=== PATIENT | male | born 1995 | race Native Hawaiian/Other Pacific Islander ===

== ENCOUNTER 2017-08-13 09:19 | Emergency (ER) | payer BC, OTHER ==
--- NOTE | 2017-08-13 10:17 | ED Physician Documentation ---
PD HPI HEADACHE - Stated complaint Stated Complaint: HEADACHE - Chief complaint Chief Complaint: Heent - History obtained from History obtained from: Patient - History of Present Illness Timing - onset: How many days ago (3) Timing - onset during: Rest Timing - duration: Days (3) Timing - details: Gradual onset, Still present Worst headache ever?: No: Worst headache ever? Location: Back Quality: Throbbing Associated symptoms: Other (photophobia and sore throat). No: Fever, Stiff neck , Nausea, Vomiting, Weakness, Numbness, Syncope, Seizure, Eye pain, Vision changes Improved by: Rest, Dark room Worsened by: Light Similar symptoms before: Diagnosis (migraine and tension headache) Recently seen: Not recently seen - Additional information Additional information: 22-year-old male with history of migraine headaches has developed a tension headache in his left neck. He also has a sore throat. He characterizes sore throat is pain with swallowing he has not had much in way of a postnasal drip or cough associated with this and he has not had a fever. He does have some chronic postnasal drip that comes and goes. He states this is different than his migraine. Review of Systems Constitutional: denies: Fever Eyes: reports: Photophobia. denies: Decreased vision Ears: denies: Ear pain Nose: denies: Rhinorrhea / runny nose, Congestion Throat: reports: Sore throat Cardiac: denies: Chest pain / pressure, Palpitations Respiratory: denies: Dyspnea, Cough GI: denies: Abdominal Pain, Nausea, Vomiting : denies: Dysuria Musculoskeletal: reports: Neck pain. denies: Back pain, Extremity pain Neurologic: reports: Headache. denies: Head injury, LOC PD PAST MEDICAL HISTORY - Past Medical History Past Medical History: Yes Cardiovascular: None Respiratory: Asthma Endocrine/Autoimmune: None GI: GERD : None HEENT: Chronic vision loss, Chronic sinusitis, Other Psych: Depression, Anxiety, Panic attacks, Claustrophobia Musculoskeletal: None Derm: Rosacea - Past Surgical History Past Surgical History: No Ortho: Other - Present Medications Home Medications: Ambulatory Orders Medication Instructions Recorded Confirmed Albuterol [Ventolin Hfa] 2 puffs INH Q4H PRN 11/03/13 03/17/17 Fluticasone/Salmeterol [Advair 1 each IH BID PRN 03/17/17 03/17/17 250-50 Diskus] Sertraline [Zoloft] 50 mg PO DAILY 03/17/17 03/17/17 Azithromycin [Zithromax] 250 mg PO DAILY #6 tablet 08/13/17 Cyclobenzaprine [Flexeril] 10 mg PO TID PRN #20 tablet 08/13/17 HYDROcod/ACETAM 5/325 [Lima 5/325] 1 - 2 ea PO Q6H PRN #15 tablet 08/13/17 - Allergies Allergies/Adverse Reactions: Allergies Allergy/AdvReac Type Severity Reaction Status Date / Time animal dander Allergy Unknown Verified 08/13/17 09:23 crab Allergy Itching Verified 08/13/17 09:23 lactose Allergy Unknown Verified 08/13/17 09:23 pineapple Allergy Unknown Verified 08/13/17 09:23 pollen extracts Allergy Unknown Verified 08/13/17 09:23 shellfish derived Allergy Unknown Verified 08/13/17 09:23 - Social History Does the pt smoke?: No Smoking Status: Never smoker Does the pt drink ETOH?: No Does the pt have substance abuse?: No - Immunizations Immunizations are current?: Yes PD ED PE NORMAL - Vitals Vital signs reviewed: Yes (hypertension ) - General General: Alert and oriented X 3, No acute distress, Well developed/nourished - HEENT HEENT: Atraumatic, PERRL, EOMI, Ears normal, Moist mucous membranes, Other ( mild exudate on 2+ tonsils without exudate. ) - Neck Neck: Supple, no meningeal sign, No bony TTP, Other (There is tenderness to the occiput at the insertion of the trapezius. ) - Cardiac Cardiac: RRR, No murmur - Respiratory Respiratory: No respiratory distress, Clear bilaterally - Abdomen Abdomen: Soft, Non tender - Back Back: No CVA TTP, No spinal TTP - Derm Derm: Normal color, Warm and dry, No rash - Extremities Extremities: No deformity, No edema - Neuro Neuro: Alert and oriented X 3, batch tank controller 2-12 intact, No motor deficit, No sensory deficit, Normal speech Eye Opening: Spontaneous Motor: Obeys Commands Verbal: Oriented GCS Score: 15 - Psych Psych: Normal mood, Normal affect Results - Vitals Vitals: Vital Signs - 24 hr 08/13/17 09:22 Temperature 36.8 C Heart Rate 61 Respiratory 16 Rate Blood Pressure 150/83 H O2 Saturation 99 Oxygen O2 Source Room air - Labs Labs: Laboratory Tests 08/13/17 10:15 Group A Strep Rapid Negative PD MEDICAL DECISION MAKING - ED course Complexity details: reviewed results, re-evaluated patient, considered differential, d/w patient ED course: 22-year-old male with a sore throat and headache has spasm of the trapezius at the insertion to the occiput and resulting headache. He does have minimal exudate on his pharynx and he is administered dexamethasone 10 mg here in the emergency department rapid strep is negative we will place him on some Zithromax for tonsillitis. - Sepsis Event Vital Signs: Vital Signs - 24 hr 08/13/17 09:22 Temperature 36.8 C Heart Rate 61 Respiratory 16 Rate Blood Pressure 150/83 H O2 Saturation 99 Oxygen O2 Source Room air Departure - Departure Disposition: 01 Home, Self Care Clinical Impression: Tonsillitis, Tension headache Condition: Stable Instructions: ED Headache Tension, ED Tonsillitis Follow-Up: Dee Dee Tolbert MD [Primary Care Provider] - Prescriptions: Azithromycin [Zithromax] 250 mg PO DAILY #6 tablet Cyclobenzaprine [Flexeril] 10 mg PO TID PRN #20 tablet PRN Reason: Spasms HYDROcod/ACETAM 5/325 [Lima 5/325] 1 - 2 ea PO Q6H PRN #15 tablet PRN Reason: Pain Forms: Activity restrictions
[2017-08-13] MEDS: DEXAMETHASONE 10 MG/ML VIAL PO STA (10:23)
[2017-08-13] MEDS: KETOROLAC 60 MG/2 ML VIAL IM STA (10:23)
[2017-08-13] MEDS ORDERED: CHERRY SYRUP 10 ML UDC PO ONE (10:31)
[2017-08-13 11:36] VITALS: BP 129/87
== END 2017-08-13 11:38 | disposition home or self-care (01) ==
LOC: ED 09:19
DX: J03.90 Acute tonsillitis, unspecified (principal); G44.209 Tension-type headache, unspecified, not intractable; J45.909 Unspecified asthma, uncomplicated; K21.9 Gastro-esophageal reflux disease without esophagitis
CPT/HCPCS: 87070; 87430; 96372; 99283

== ENCOUNTER 2017-09-06 14:34 | Outpatient (CLI) | payer OTHER ==
--- NOTE | 2017-09-06 15:00 | XRAY Report ---
Procedure Date: 09/06/2017 Accession Number: [id number] / [id number] Procedure: XR - Shoulder 3 View LT CPT Code: FULL RESULT: EXAM: LEFT SHOULDER RADIOGRAPHY EXAM DATE: 09/06/2017 02:43 PM. CLINICAL HISTORY: L SHOULDER PAIN. COMPARISON: None. TECHNIQUE: 3 views. FINDINGS: Bones: Normal. No fracture or bone lesion. Joints: The glenohumeral and acromioclavicular joints are normal. Soft tissues: The visualized hemithorax is unremarkable. No soft tissue swelling. IMPRESSION: Normal shoulder radiography. RADIA
== END 2017-09-06 14:35 | disposition home or self-care (01) ==
LOC: DI 14:34
PROVIDERS: ATTEND Specialist
DX: M25.512 Pain in left shoulder (principal)

== ENCOUNTER 2018-01-20 09:42 | Day surgery (SDC) | payer OTHER ==
[~2018-01-20 09:42] MED LIST: ceFAZolin 2 GM/50 ML 2 GM/50 ML BAG IV ONE
[2018-01-20] MEDS ORDERED: BUPIVACAINE 0.25%-EPI 1:200000 PF 30 ML VIAL ONE (10:02)
[2018-01-20] MEDS ORDERED: LACTATED RINGERS 1,000 ML IV ONE (10:06)
--- NOTE | 2018-01-20 10:08 | ANESTHESIA ---
Pre-Anesthesia VS, & Labs - Diagnosis retained painful hardwar loft hip fracture - Procedure removal of hardware Left hip fracture Vital Signs: Temp Pulse Resp BP Pulse Ox 36.4 C L 67 16 135/82 H 99 01/20/18 09:55 01/20/18 09:55 01/20/18 09:55 01/20/18 09:55 01/20/18 09:55 Height 5 ft 5 in Weight (kg) 53 kg Body Mass Index 19.3 - NPO >8 hours Home Medications and Allergies Albuterol [Ventolin Hfa] 2 puffs INH Q4H PRN 11/03/13 Fluticasone/Salmeterol [Advair 250-50 Diskus] 1 each IH BID PRN 03/17/17 Sertraline [Zoloft] 50 mg PO DAILY 03/17/17 Allergies/Adverse Reactions: Allergies Allergy/AdvReac Type Severity Reaction Status Date / Time animal dander Allergy Unknown Verified 08/13/17 09:23 crab Allergy Itching Verified 08/13/17 09:23 lactose Allergy Unknown Verified 08/13/17 09:23 pineapple Allergy Unknown Verified 08/13/17 09:23 pollen extracts Allergy Unknown Verified 08/13/17 09:23 shellfish derived Allergy Unknown Verified 08/13/17 09:23 Anes History & Medical History - Anesthetic History Anesthesia Complications: reports: No previous complications - Medical History Cardiovascular: reports: None Pulmonary: reports: Asthma Gastrointestinal: reports: None Urinary: reports: None Neuro: reports: None Musculoskeletal: reports: None Endocrine/Autoimmune: reports: None Blood Disorders: reports: None Skin: reports: Rosacea Smoking Status: Never smoker Psychosocial: reports: Cannabis (Daily marijuana use.) - Surgical History Orthopedic: Other Exam General: Alert, Oriented x3, Cooperative, No acute distress Dental: Other (permanent retainer on bottom teeth) Mouth Openin Fingerbreadth Neck Mobility: Normal Mallampati classification: I Thyromental Distance: 4-6 cm Respiratory: Lungs clear, Normal breath sounds, No respiratory distress, No accessory muscle use Cardiovascular: Regular rate, Normal S1, Normal S2, No murmurs Mental/Cognitive Status: Alert/Oriented X3, Normal for patient Plan Anesthesia Type: General Consent for Procedure(s) Verified and Reviewed: Yes Code Status: Attempt Resuscitation ASA classification: 2-Mild systemic disease Is this case an emergency?: No
[2018-01-20] MEDS ORDERED: SCOPOLAMINE PATCH TOP ONE (10:09)
[2018-01-20] MEDS ORDERED: BUPIVACAINE 0.25%-EPI 1:200000 PF 30 ML VIAL SUBQ ONE (11:22)
[2018-01-20] MEDS ORDERED: HYDROcod/ACETAM 5/325 MG TABLET PO PRN (11:44)
[2018-01-20] MEDS ORDERED: ONDANSETRON 4 MG/2 ML VIAL IVP PRN (11:44)
[2018-01-20] MEDS ORDERED: fentaNYL 100 MCG/2 ML VIAL IVP ONE (11:54)
[2018-01-20] MEDS ORDERED: LIDOCAINE-MPF 2% 5 ML VIAL IM ONE (11:54)
[2018-01-20] MEDS ORDERED: ACETAMINOPHEN 1,000 MG/100 ML 100 ML IV ONE (11:54)
[2018-01-20] MEDS ORDERED: PROPOFOL 200 MG/20 ML VIAL IVP ONE (11:54)
[2018-01-20] MEDS ORDERED: KETOROLAC 30 MG/ML VIAL IVP ONE (11:54)
[2018-01-20] MEDS ORDERED: ceFAZolin 2 GM/50 ML 2 GM/50 ML BAG IV ONE (11:54)
[2018-01-20] MEDS ORDERED: ROCURONIUM 50 MG/5 ML VIAL IVP ONE (11:54)
[2018-01-20] MEDS ORDERED: ONDANSETRON 4 MG/2 ML VIAL IVP ONE (11:54)
[2018-01-20] MEDS: fentaNYL 100 MCG/2 ML VIAL ONE ×2 (12:00→12:09)
[2018-01-20] MEDS ORDERED: HYDROmorphone 1 MG/ML CARPUJECT ONE (12:16)
[2018-01-20] MEDS ORDERED: HYDROcod/ACETAM 5/325 MG TABLET ONE (12:52)
[2018-01-20] MEDS ORDERED: ONDANSETRON 4 MG/2 ML VIAL ONE (13:33)
[2018-01-20 14:30] VITALS: BP 132/85
--- NOTE | 2018-01-20 16:54 | OPERATIVE REPORT ---
DATE OF SERVICE: 01/20/2018 Physician: Zack Hoffmann MD DATE OF PROCEDURE: 01/20/2018. PREOPERATIVE DIAGNOSIS: Retained hardware left proximal femur, a short intramedullary farideh with inter lock screws x2. OPERATIVE PROCEDURE: Removal of left femoral farideh and screws. SURGEON: Zack Hoffmann MD ANESTHESIA: General, Dr. Ghosh. INDICATIONS FOR SURGERY: Patient is a 22-year-old who is about 2 years status post a intertrochanter ic subtrochanteric fracture of his left femur in a fall. This was treated by a short intramedullary device, which rendered stability and the patient went on to uneventful healing, but now is symptomati c because of his hardware and desires removal of hardware and screws. DESCRIPTION OF OPERATIVE PROCEDURE: The patient was taken to the operating room. He was given a gen eral anesthetic. He was positioned right lateral decubitus and his hip area was sterilely prepped an d draped in standard fashion. A surgical timeout was held. The patient's wound areas were infiltrat ed with Marcaine with epinephrine and then the incisions were recreated overlying the hardware to ini tially remove first the distal screw, which was exposed directly down to bone and removed uneventfull y. Next, the exposure was made to the proximal femur where the interlock screw was backed out of the femur and backed out in the femoral farideh to loosen the screw and the proximal attachment device was a pplied for the SLAP hammer and extraction. Finally, the incision was made over the lag screw and the lag screw was exposed and removed by backing the screw out. Finally, the SLAP hammer was attached t o the proximal part of the nail and the nail was slapped out of the femur uneventfully. The wounds w ere irrigated. The femur was ranged and there was no crepitus or abnormality. Closure was in the de ep layers with 2-0 Vicryl in the fascial layers, 3-0 Vicryl subcuticular and 3-0 Monocryl in the skin . Sterile dressings were applied. The patient was then taken to recovery room in stable condition. ESTIMATED BLOOD LOSS: About 20 mL at most. COMPLICATIONS: None. COUNTS: Sponge and needle counts correct. TD: 01/20/2018 12:11
== END 2018-01-20 09:43 | disposition home or self-care (01) ==
LOC: SDS 09:42
PROVIDERS: ATTEND Orthopaedic Surgery
PROC: 0QP904Z Removal of Internal Fixation Device from Left Femoral Shaft, Open Approach (ICD-10-PCS; principal; 2018-01-20 11:00)
DX: T84.84XA Pain due to internal orthopedic prosthetic devices, implants and grafts, initial encounter (principal); Z87.81 Personal history of (healed) traumatic fracture
CPT/HCPCS: 20680; A9270; J0690; J1170; J3490; J7120